=== PATIENT | male | born 1945 | race Caucasian/White ===

== ENCOUNTER → 2016-09-07 | Day surgery (SDC) | payer OTHER ==
[~2016-09-07] MED LIST: AMLODIPINE BESYL5 MG PO; ATENOLOL50 MG PO; COZAAR100 MG PO; FLONASE16 GM; FLOVENT DISKUS50 MCG INH; HYDROCHLOROTHIA25 MG PO; LANTUS100 U/ML SUBQ; LANTUS100 UNITS/; LOSARTAN POTASS50 MG PO; METFORMIN HCL1000 M1 PO; MULTI VITAMIN1 EACH PO; PRADAXA150 MG PO; ROSUVASTATIN CA20 MG PO; SIMCOR PO; TENORMIN50 MG PO
--- NOTE | ~2016-09-07 | OR ---
Unit #: [id number] #: [id number] Patient: GERBER RICHARDSON [id number] [address] [place], [place] [address] [id number] MR#: [id number] NAME: GERBER RICHARDSON ROOM: Date of Procedure: 09/07/2016 Admission Date: 09/07/2016 Surgeon: Tha Stephens M.D. : 1945 Attending Physician: Tha Stephens M.D. Primary Care Physician: Josemanuel Puri Jr., M.D. OPERATIVE REPORT PREOPERATIVE DIAGNOSES Colorectal cancer surveillance. The patient has personal history of colonic polyps and has come for surveillance colonoscopy. PROCEDURES PERFORMED Colonoscopy and polypectomy. POSTOPERATIVE DIAGNOSES 1. There were total of 4 polyps, 3 in the ascending colon and 1 in the transverse colon. All were removed using snare polypectomy, retrieved and sent for histology. 2. Moderate sigmoid and descending colon diverticulosis. 3. Rest of examination up to cecum was normal. The quality of prep was good. RECOMMENDATIONS Follow up results of polyp histology and consider repeat colonoscopy in 5 years. SEDATION USED MAC. DESCRIPTION OF PROCEDURE Following detailed explanation of the potential risks and complications of a colonoscopy, namely perforation, bleeding, and complications related to sedation, the patient was brought to GI lab and laid in the left lateral decubitus position. A digital rectal examination was performed which was normal. A lubricated tip of the Olympus video colonoscope was inserted through the anus and advanced under direct vision. The scope was advanced and passed up to sigmoid into descending colon. Multiple medium-sized diverticula were noted in this area. The scope tip was then navigated all the way up to cecum with visualization of the ileocecal valve and the appendiceal orifice. Preparation was excellent with good visualization and photodocumentation was obtained. Successive segments of the colonic mucosa were examined upon withdrawal. Two sessile polyps noted just above the ileocecal valve and were removed using snare polypectomy. They were 5 to 6 mm each. A third polyp about 3 mm in size was removed in the mid to distal ascending colon, and a 4th polyp was present in the mid transverse colon about 7 mm in size, it was also removed using snare polypectomy. All the polyps were retrieved and sent for histology. No additional polyps noted. Other than the moderate left-sided diverticulosis, no other additional abnormalities were seen. The patient did not have any Unit #: [id number] #: [id number] Patient: GERBER RICHARDSON hemorrhoids at anal verge. The scope was withdrawn. The patient returned to the recovery area. He tolerated the procedure without any postprocedure complications. Dictated by... Lisette Ribera/xenia TD: 09/07/2016 15:19 JOB #: [id number] CC: Josemanuel Puri Jr., M.D. OPERATIVE REPORT Page 1 of 1 X Tha Stephens MD X PROCEDURE OPERATIVE NOTE
== END | disposition home or self-care (01) ==
LOC: COPS 07:53
DX: Z12.11 Encounter for screening for malignant neoplasm of colon (principal); D12.3 Benign neoplasm of transverse colon; D12.2 Benign neoplasm of ascending colon; K57.30 Diverticulosis of large intestine without perforation or abscess without bleeding; I48.91 Unspecified atrial fibrillation; I10 Essential (primary) hypertension; E78.5 Hyperlipidemia, unspecified; Z86.010 Personal history of colon polyps; Z87.898 Personal history of other specified conditions; Z88.0 Allergy status to penicillin; Z79.4 Long term (current) use of insulin; Z79.02 Long term (current) use of antithrombotics/antiplatelets; Z79.899 Other long term (current) drug therapy
CPT/HCPCS: 82947; 88305; J2250